=== PATIENT | male | born 1975 | race Caucasian/White ===

== ENCOUNTER 2024-01-16 07:46 | Day surgery (SDC) | payer MEDICAID ==
[~2024-01-16] VITALS: Ht 157.5 cm; Wt 85.7 kg
[2024-01-16] MEDS ORDERED: MIDAZOLAM HCL 5 MG/5 ML VIAL ONE (07:59)
[2024-01-16] MEDS ORDERED: MEPERIDINE 100 MG INJ. 100 MG/ML VIAL ONE (07:59)
[2024-01-16 11:38] VITALS: TEMP 97.6; O2SAT 100
[2024-01-16 13:28] VITALS: BP_SYST 109; PULSE 77; RESP 14
== END 2024-01-16 10:30 | disposition home or self-care (01) ==
LOC: SDS 07:46 → SMU 07:48 → SDS 10:30
PROVIDERS: ATTEND Internal Medicine
DX: Z12.11 Encounter for screening for malignant neoplasm of colon (principal); K64.8 Other hemorrhoids; K57.30 Diverticulosis of large intestine without perforation or abscess without bleeding; D12.4 Benign neoplasm of descending colon; I10 Essential (primary) hypertension; E11.9 Type 2 diabetes mellitus without complications; E78.5 Hyperlipidemia, unspecified; Z79.84 Long term (current) use of oral hypoglycemic drugs; Z79.4 Long term (current) use of insulin; Z79.899 Other long term (current) drug therapy
CPT/HCPCS: 45380; 45385; 82948; 88305; J2175; J2250